=== PATIENT | male | born 1975 ===

== ENCOUNTER 2024-04-14 05:43 | Day surgery (SDC) | payer OTHER ==
[2024-04-14] MEDS ORDERED: CIPROFLOXACIN HCL 0.175 MG/DR DROPS OTIC SCH (12:30)
[2024-04-14] MEDS ORDERED: LIDOCAINE HCL 1%/EPINEPHRINE 20ML VIAL IJ SCH (12:30)
[2024-04-14] MEDS ORDERED: CEFAZOLIN SODIUM 1,000 MG VIAL IV SCH (12:30)
[2024-04-14] MEDS ORDERED: POVIDONE-IODINE 118 ML BOTT TOP SCH (12:30)
[2024-04-14] MEDS ORDERED: CIPROFLOXACIN2.5 ML OTIC (12:33)
[2024-04-14] MEDS ORDERED: MORPHINE SULFATE 4 MG/ML VIAL IV ONE ×2 (13:40→14:10)
== END 2024-04-14 16:00 | disposition home or self-care (01) ==
LOC: CIR.AMB 05:43
PROVIDERS: ATTEND Otolaryngology Otology & Neurotology
DX: D23.22 Other benign neoplasm of skin of left ear and external auricular canal (principal); H74.42 Polyp of left middle ear; S01.302A Unspecified open wound of left ear, initial encounter; C44.209 Unspecified malignant neoplasm of skin of left ear and external auricular canal